=== PATIENT | male | born 1980 | race Two or more races ===

== ENCOUNTER 2023-07-11 14:58 | Outpatient (OUT) | payer OTHER, SELFPAY ==
[2023-07-11 16:25] LABS: Free T4 1.01 ng/dL (0.76-1.46)
[2023-07-11 16:26] LABS: Alanine Aminotransferase 72 U/L (16-63); Albumin Globulin Ratio 0.9; Albumin Level 3.6 g/dL (3.4-5.0); Alkaline Phosphatase 88 U/L (46-116); Anion Gap 12.4; Aspartate Amino Transferase 33 U/L (15-37); BUN Creatinine Ratio 14.9; Bilirubin Total 0.3 mg/dL (0.2-1.0); Calcium 8.7 mg/dL (8.5-10.1); Carbon Dioxide 27.4 mmol/L (21.0-32.0); Chloride 104 mmol/L (98-107); Chol HDL Ratio 5.4; Cholesterol 204 mg/dL (<=200); Estimated GFR (African America >60 (>=60); Estimated GFR (Non-African Ame >60 (>=60); Globulin 3.9 g/dL; Glucose 101 mg/dL (74-106); HDL Cholesterol 38 mg/dL (40-60); Potassium 3.8 mmol/L (3.5-5.1); Sodium 140 mmol/L (136-145); Thyroid Stimulating Hormone 2.383 uIU/mL (0.358-3.740); Total Protein 7.5 g/dL (6.4-8.2); Triglycerides 342 mg/dL (<=150); VLDL CHOLESTEROL 68.4 mg/dL
[2023-07-13 08:15] LABS: Testosterone 387 ng/dL (264-916)
== END 2023-07-11 14:59 | disposition home or self-care (01) ==
PROVIDERS: PCP Nurse Practitioner Family; Visit Provider Nurse Practitioner Family
DX: Z00.00 Encounter for general adult medical examination without abnormal findings (principal); R53.82 Chronic fatigue, unspecified
CPT/HCPCS: 36415; 80053; 80061; 84403; 84439; 84443

== ENCOUNTER 2024-05-31 09:37 | Emergency (ER) | payer OTHER, SELFPAY ==
[2024-05-31 09:40] VITALS: BP 138/97; PULSE 68; TEMP 36.6; O2SAT 98; BMI 31.2
--- NOTE | 2024-05-31 09:51 | ED_ITS ---
HPI HPI - Extremity Injury (Upper) General Chief Complaint: Extremity Injury, Upper Stated Complaint: UPPER EXTREMITY INJURY Time Seen by Provider: 05/31/24 09:48 History of Present Illness HPI narrative: 44-year-old male presents to the emergency department for a chief complaint of pain in his right wrist. Yesterday he was working on his car and hurt his wrist in a twisting motion. He points to the ulnar side of the wrist indicate area of pain and it hurts if he moves his wrist in that direction. Flexion extension do not seem to bother it much. Related Data Previous Rx's ?Medication ?Instructions ?Recorded etodolac 400 mg tablet 400 mg PO Q8H PRN pain #30 tabs 05/31/24 Allergies Allergy/AdvReac Type Severity Reaction Status Date / Time No Known Drug Allergies Allergy Verified 05/31/24 09:44 Opioid HPI Opioid Management Most Recent Pain and Opioid Data: Last Pain Scale 7 05/31/24 09:52 05/31/24 Last ED Pain Assessment 05/31/24 09:44 Review of Systems ROS Narrative A ten point review of systems is negative except as noted above. PFSH PFS Medical History (Updated 05/31/24 @ 10:35 by German Lara MD) No pertinent past medical history ?Z78.9 - Other specified health status (ICD-10) Surgical History (Updated 05/31/24 @ 09:55 by Jamie Velasquez) No pertinent past surgical history ?Z78.9 - Other specified health status (ICD-10) Social History Little interest or pleasure in doing things: not at all Feeling down, depressed, or hopeless: not at all Exam Narrative Exam Narrative: Nurses note and vital signs reviewed and patient is not hypoxic. General: The patient appears well and in no apparent distress. Patient is resting comfortably on cart. Skin: Warm, dry, no pallor noted. There is no rash noted. Head: Normocephalic, atraumatic Eye: Normal conjunctiva, no drainage Ears, Nose, Mouth, and Throat: oral mucosa is moist. Nares patent. Cardiovascular: Regular Rate and Rhythm Respiratory: Patient is in no distress, no accessory muscle use GI: Nontender Musculoskeletal: The right wrist is examined. There is no swelling or bruising or rash. Fingers have full range of motion. Ulnar deviation of the hand at the wrist causes discomfort. Neurological: A&O, normal speech Psychiatric: Cooperative Constitutional Vital Signs, click to edit/add: Last Vital Signs Temp 97.8 F 05/31/24 09:40 Pulse 68 05/31/24 09:40 Resp 16 05/31/24 09:40 BP 138/97 H 05/31/24 09:40 Pulse Ox 98 05/31/24 09:40 O2 Del Method Room Air 05/31/24 09:40 Course Vital Signs Vital signs: Vital Signs Temperature 97.8 F 05/31/24 09:40 Pulse Rate 68 05/31/24 09:40 Respiratory Rate 16 05/31/24 09:40 Blood Pressure 138/97 H 05/31/24 09:40 Pulse Oximetry 98 05/31/24 09:40 Oxygen Delivery Method Room Air 05/31/24 09:40 Temperature 97.8 F 05/31/24 09:40 Pulse Rate 68 05/31/24 09:40 Respiratory Rate 16 05/31/24 09:40 Blood Pressure 138/97 H 05/31/24 09:40 Pulse Oximetry 98 05/31/24 09:40 Oxygen Delivery Method Room Air 05/31/24 09:40 MDM - Extremity Injury (Upper) MDM Narrative Medical decision making narrative: X-ray is negative. Splint applied, application checked by me and found to be appropriate, he is neurovascularly intact. Orthopedic appointment made for a week from today at 10:30 AM, June 07. Treatment diagnosis and follow-up were discussed with the patient. Differential Diagnosis Differential diagnosis: Likely sprain and strain of wrist and fracture of wrist Imaging Data Wrist sprain: Radiologist's impression: ITS Impressions Wrist X-Ray 05/31/24 09:51 IMPRESSION: 1. Normal examination. Electronically authenticated by: VLADIMIR LAINEZ Date: 05/31/2024 10:26 Discharge Plan Discharge Chief Complaint: Extremity Injury, Upper Clinical Impression: Right wrist sprain Patient Disposition: Home, Self-Care Time of Disposition Decision: 10:34 Condition: Good Mode of Transportation: Private Vehicle Prescriptions / Home Meds: New etodolac 400 mg tablet 400 mg PO Q8H PRN (Reason: pain) Qty: 30 0RF Print Language: Greenlandic Instructions: Wrist Sprain (ED) Referrals: YOLANDA GREENBERG [Primary Care Provider] - 1 week Vladimir Bernardo MD [Physician] - 06/07/24 10:30 am
--- NOTE | 2024-05-31 09:51 | XR_ITS ---
[address] [address] Patient Name: MONISHA HAINES MRN: [id number] date: 1980 Sex: M Assigned Patient Location: ER Current Patient Location: ED.MAIN Accession/Order Number: [id number] Exam Date: 05/31/2024 09:52 Report Date: 05/31/2024 10:26 At the request of: KHADRA SWEENEY Procedure: XR wrist RT min 3V PROCEDURE: XR wrist RT min 3V HISTORY: Pain on the ulnar side COMPARISON: None. FINDINGS: BONES:No fracture, acute abnormality, or significant arthropathy. SOFT TISSUES:No visible soft tissue swelling. EFFUSION:None visible. OTHER: Negative. XR/XR wrist RT min 3V IMPRESSION: 1. Normal examination. Electronically authenticated by: MILTON LAINEZ Date: 05/31/2024 10:26
--- OUTSIDE RECORDS SUMMARY | 2024-05-31 10:02 | XMS_ITS | CCD ---
Author Organization [facility] Care Team Providers Care Licensed Surveyor Name Role Phone MISTI, DR KOEHLER Admitting Unavailable GRILLIS, DR KOEHLER Consulting Unavailable GRILLIS, DR KOEHLER Attending Unavailable REQUEST, DR COMBS LISTED Referring Unavaila ble GRILLIS, DR KOEHLER Admitting Unavailable GRILLIS, DR KOEHLER Consulting Unavailable GRILLIS, DR KOEHLER Attending Unavailable REQUEST, DR COMBS LISTED Primary Care Unavaila JANET Nunez Consulting Unavailable MARKER, DR CHOI Consulting Unavailable MARKER, DR CHOI Attending Unavailable MARKER, DR CHOI Admitting Unavailable LEVY ORELLANA Consulting Unavailable Sammi RN DOCUMENTATION-PLANTING MATERIAL CARRIER, Yolanda Vaughn Primary Care Provider YOLANDA CHAPA Attending Unavailable YOLANDA CHAPA Primary Care Unavailable Problems Active Problems Problem Classification Problem Date Documented Date Episodic/Chronic Anxiety disorders (3 sources) Generalized anxiety disorder; Translations: [Generalized anxiety disorder] Onset: 06-01-2018 06-01-2018 Chronic Biliary tract disease (5 sources) Calculus of gallbladder with chronic cholecystitis without obstruction; Translations: [Calculus of gallbladder without cholecystitis without obstruction] Onset: 04-18-2021 Episodic Coma; stupor; and brain damage (1 source) Somnolence; Translations: [Somnolence] Onset: 07-08-2023 Episodic Malaise and fatigue (1 source) Chronic fatigue, unspecified; Translations: [Chronic fatigue, unspecified] Onset: 07-08-2023 Chronic Nausea and vomiting (3 sources) Vomiting, unspecified; Translations: [VOMITING UNSPECIFIED] Onset: 04-17-2021 Episodic Residual codes; unclassified (3 sources) Obstructive sleep apnea syndrome; Translations: [Obstructive sleep apnea (adult) (pediatric)] Onset: 08-01-2023 08-01-2023 Chronic Substance-related disorders (1 source) Nicotine dependence, cigarettes, uncomplicated; Translations: [NICOTINE DEPEND CIGARETTES UNCOMP] Onset: 05-22-2021 Chronic Unclassified (1 source) CONTACT W/AND (SUSP) EXPOS COVID-19; Translations: [CONTACT W/AND (SUSP) EXPOS COVID-19] Onset: 05-19-2021 Unclassified (1 source) new patient Onset: 07-08-2023 Past or Other Problems Problem Classification Problem Date Documented Da te Episodic/Chronic Mood disorders (3 sources) Mood disorders Onset: 07-08-2023 07-08-2023 Unclassified (3 sources) Onset: 07-08-2023 07-08-2023 Results Test Name Value Interpretation Reference Range Facil ity CBC AUTO DIFFon 05-14-2021 BASO # 0.1 103/ul Normal 0.0-0.1 [facility] Comment on above: Performed By: #### C BC #### [facility] [address] [place] [address] Dr. Feliz Srivastava Basophils/100 WBC (Bld) 0.7 % Normal 0.2-2.0 [facility] Comment on above: Performed By: #### C BC #### [facility] [address] [address] [address] Feliz Srivastava EO # 0.1 103/ul Normal 0.0-0.7 [facility] Comment on above: Performed By: #### C BC #### [facility] [address] [place] [address] Dr. Feliz Srivastava Eosinophils/100 WBC (Bld) 1.4 % Normal 0.9-7.0 [facility] Comment on above: Performed By: #### C BC #### [facility] [address] [place] [address] Dr. Feliz Srivastava Erythrocyte distribution width (RBC) [Ratio] 12.7 % Normal 11.0-15.0 [facility] Comment on above: Performed By: #### C BC #### [facility] [address] [place] [address] Dr. Feliz Srivastava Hematocrit (Bld) [Volume fraction] 45.6 % Normal 42.0-54.0 [facility] Comment on above: Performed By: #### C BC #### [facility] [address] [place] [address] Dr. Feliz Srivastava Hemoglobin (Bld) [Mass/Vol] 15.6 g/dL Normal 14.0-18.0 [facility] Comment on above: Performed By: #### C BC #### [facility] [address] [place] [address] Dr. Feliz Srivastava IG # 0.02 10e3/ul Normal 0.00-0.03 [facility] Comment on above: Performed By: #### C BC #### [facility] [address] [place] [address] Dr. Feliz Srivastava IG % 0.3 % Normal 0.0-0.5 [facility] Comment on above: Performed By: #### C BC #### [facility] [address] [place] [address] Dr. Feliz rSivastava LYMPH # 2.3 103/ul Normal 1.2-3.8 [facility] Comment on above: Performed By: #### C BC #### [facility] [address] [place] [address] Dr. Feliz Srivastava Lymphocytes/100 WBC (Bld) 30.8 % Normal 20.5-60.0 [facility] Comment on above: Performed By: #### C BC #### [facility] [address] [place] [address] Dr. Feliz Srivastava MANUAL DIFF REQ NO Normal [facility] Comment on above: Performed By: #### C BC #### [facility] [address] [place] [address] Dr. Feliz Srivastava MCH (RBC) [Entitic mass] 32.2 pg Normal 25.9-34.0 [facility] Comment on above: Performed By: #### C BC #### [facility] [address] [place] [address] Dr. Feliz Srivastava MCHC (RBC) [Mass/Vol] 34.2 g/dL Normal 29.9-35.2 [facility] Comment on above: Performed By: #### C BC #### [facility] [address] [address] [address] Feliz Srivastava MCV (RBC) [Entitic vol] 94.0 fL Normal 80.0-94.0 [facility] Comment on above: Performed By: #### C BC #### [facility] [address] [address] [address] Feliz Srivastava MONO # 0.7 103/ul Normal 0.3-0.8 [facility] Comment on above: Performed By: #### C BC #### [facility] [address] [address] [address] Feliz Srivastava Monocytes/100 WBC (Bld) 9.1 % Normal 1.7-12.0 [facility] Comment on above: Performed By: #### C BC #### [facility] [address] [place] [address] Dr. Feliz Srivastava NEUT # 4.3 103/ul Normal 1.4-6.5 [facility] Comment on above: Performed By: #### C BC #### [facility] [address] [place] [address] Dr. Feliz Srivastava Neutrophils/100 WBC (Bld) 57.7 % Normal 43.0-75.0 [facility] Comment on above: Performed By: #### C BC #### [facility] [address] [place] [address] Dr. Feliz Srivastava Platelet mean volume (Bld) [Entitic vol] 9.8 fL Normal 9.5-13.5 [facility] Comment on above: Performed By: #### C BC #### [facility] [address] [place] [address] Dr. Feliz Srivastava PLT 284 103/ul Normal 150-450 [facility] Comment on above: Performed By: #### C BC #### [facility] [address] [place] [address] Dr. Feliz Srivastava RBC 4.85 106/ul Normal 4.70-6.10 [facility] Comment on above: Performed By: #### C BC #### [facility] [address] [place] [address] Dr. Feliz Srivastava WBC 7.4 103/ul Normal 4.0-11.0 [facility] Comment on above: Performed By: #### C BC #### [facility] [address] [place] [address] Dr. Feliz Srivastava Covid-19 PCR (CVDTB)on 04-30 SARS-CoV-2 (COVID-19) RNA POLO+probe Ql (Unsp spec) Not detected Normal NOT DETECTED [facility] Comment on above: Result Comment: This test is not yet approved or cleared by the [place] FDA. When there are no FDA-approved or cleared tests available, and other criteria are met, FDA can make tests available under an emergency access mechanism called an Emergency Use Authorization (EUA). The EUA for this test is supported by the [place] of Health and Human Service's (HHS's) declaration that circumstances exist to justify the emergency use of in vitro diagnostics for the detection and/or diagnosis of the virus that causes COVID-19. This EUA will remain in effect (meaning this test can be used) for the duration of the COVID-19 declaration justifying emergency of IVDs, unless it is terminated or revoked by FDA (after which the test may no longer be used). When diagnostic testing is negative, the possibility of a false negative should be considered in the context of a patient's recent exposures and the presence of clinical signs and symptoms consistent with SARS-CoV-2. Performed By: #### C VDTBH #### [facility] [address] [place] [address] Dr. Feliz Srivastava LIPASEon 05-14-2021 Lipase [Catalytic activity/Vol] 76.0 U/L Normal 23.0-300.0 [facility] Comment on above: Performed By: #### L IPA, CMP #### [facility] [address] [place] [address] Dr. Feliz Srivastava PROF 14(COMP METB)on 021 Albumin [Mass/Vol] 3.6 g/dL Normal 3.5-5.0 [facility] Comment on above: Performed By: #### L IPA, CMP #### [facility] [address] [place] [address] Dr. Feliz Srivastava Albumin/Globulin [Mass ratio] 0.9 {ratio} Normal [facility] Comment on above: Performed By: #### L IPA, CMP #### [facility] [address] [place] [address] Dr. Feliz Srivastava ALP [Catalytic activity/Vol] 90 U/L Normal 38-126 [facility] Comment on above: Performed By: #### L IPA, CMP #### [facility] [address] [address] [address] Feliz Srivastava ALT [Catalytic activity/Vol] 80 U/L Critically high 21-72 [facility] Comment on above: Performed By: #### L IPA, CMP #### [facility] [address] [place] [address] Dr. Feliz Srivastava Anion gap [Moles/Vol] 8.9 mmol/L Normal [facility] Comment on above: Performed By: #### L IPA, CMP #### [facility] [address] [place] [address] Dr. Feliz Srivastava AST [Catalytic activity/Vol] 30 U/L Normal 17-59 [facility] Comment on above: Performed By: #### L IPA, CMP #### [facility] [address] [place] [address] Dr. Feliz Srivastava Bilirubin [Mass/Vol] 0.3 mg/dL Normal 0.2-1.3 [facility] Comment on above: Performed By: #### L IPA, CMP #### [facility] [address] [place] [address] Dr. Feliz Srivastava Calcium [Mass/Vol] 9.0 mg/dL Normal 8.4-10.2 [facility] Comment on above: Performed By: #### L IPA, CMP #### [facility] [address] [place] [address] Dr. Feliz Srivastava Chloride [Moles/Vol] 101 mmol/L Normal 98-107 [facility] Comment on above: Performed By: #### L IPA, CMP #### [facility] [address] [place] [address] Dr. Feliz Srivastava CO2 [Moles/Vol] 29.0 mmol/L Normal 22.0-30.0 [facility] Comment on above: Performed By: #### L IPA, CMP #### [facility] [address] [place] [address] Dr. Feliz Srivastava Creatinine [Mass/Vol] 0.92 mg/dL Normal 0.66-1.25 [facility] Comment on above: Performed By: #### L IPA, CMP #### [facility] [address] [place] [address] Dr. Feliz Srivastava EGFR-AF ICELANDIC >60 Normal >=60 [facility] Comment on above: Performed By: #### L IPA, CMP #### [facility] [address] [place] [address] Dr. Feliz Srivastava EGFR-NON AF ICELANDIC >60 Normal >=60 [facility] Comment on above: Performed By: #### L IPA, CMP #### [facility] [address] [place] [address] Dr. Feliz Srivastava Globulin (S) [Mass/Vol] 3.8 g/dL Normal [facility] Comment on above: Performed By: #### L IPA, CMP #### [facility] [address] [place] [address] Dr. Feliz Srivastava Glucose [Mass/Vol] 104 mg/dL Normal 74-106 [facility] Comment on above: Performed By: #### L IPA, CMP #### [facility] [address] [place] [address] Dr. Feliz Srivastava Potassium [Moles/Vol] 3.9 mmol/L Normal 3.4-5.0 [facility] Comment on above: Performed By: #### L IPA, CMP #### [facility] [address] [place] [address] Dr. Feliz Srivastava Protein [Mass/Vol] 7.4 g/dL Normal 6.1-8.2 [facility] Comment on above: Performed By: #### L IPA, CMP #### [facility] [address] [place] [address] Dr. Feliz Srivastava Sodium [Moles/Vol] 135 mmol/L Critically low 137-145 [facility] Comment on above: Performed By: #### L IPA, CMP #### [facility] [address] [place] [address] Dr. Feliz Srivastava Urea nitrogen [Mass/Vol] 19.0 mg/dL Normal 9.0-20.0 [facility] Comment on above: Performed By: #### L IPA, CMP #### [facility] [address] [place] [address] Dr. Feliz Srivastava Urea nitrogen/Creatinine [Mass ratio] 20.7 mg/mg Normal [facility] Comment on above: Performed By: #### L IPA, CMP #### [facility] [address] [place] [address] Dr. Feliz Srivastava CBC AUTO DIFFon 04-17-2021 BASO # 0.1 103/ul Normal 0.0-0.1 [facility] Comment on above: Performed By: #### C BC #### [facility] [address] [place] [address] Dr. Feliz Srivastava Basophils/100 WBC (Bld) 0.7 % Normal 0.2-2.0 [facility] Comment on above: Performed By: #### C BC #### [facility] [address] [place] [address] Dr. Feliz Srivastava EO # 0.1 103/ul Normal 0.0-0.7 [facility] Comment on above: Performed By: #### C BC #### [facility] [address] [place] [address] Dr. Feliz Srivastava Eosinophils/100 WBC (Bld) 0.6 % Critically low 0.9-7.0 [facility] Comment on above: Performed By: #### C BC #### [facility] [address] [place] [address] Dr. Feliz Srivastava Erythrocyte distribution width (RBC) [Ratio] 12.5 % Normal 11.0-15.0 [facility] Comment on above: Performed By: #### C BC #### [facility] [address] [place] [address] Dr. Feliz Srivastava Hematocrit (Bld) [Volume fraction] 45.7 % Normal 42.0-54.0 [facility] Comment on above: Performed By: #### C BC #### [facility] [address] [place] [address] Dr. Feliz Srivastava Hemoglobin (Bld) [Mass/Vol] 15.6 g/dL Normal 14.0-18.0 [facility] Comment on above: Performed By: #### C BC #### [facility] [address] [place] [address] Dr. Feliz Srivastava IG # 0.03 10e3/ul Normal 0.00-0.03 [facility] Comment on above: Performed By: #### C BC #### [facility] [address] [place] [address] Dr. Feliz Srivastava IG % 0.3 % Normal 0.0-0.5 [facility] Comment on above: Performed By: #### C BC #### [facility] [address] [place] [address] Dr. Feliz Srivastava LYMPH # 2.2 103/ul Normal 1.2-3.8 [facility] Comment on above: Performed By: #### C BC #### [facility] [address] [place] [address] Dr. Feliz Srivastava Lymphocytes/100 WBC (Bld) 25.2 % Normal 20.5-60.0 [facility] Comment on above: Performed By: #### C BC #### [facility] [address] [place] [address] Dr. Feliz Srivastava MANUAL DIFF REQ NO Normal [facility] Comment on above: Performed By: #### C BC #### [facility] [address] [place] [address] Dr. Feliz Srivastava MCH (RBC) [Entitic mass] 31.6 pg Normal 25.9-34.0 [facility] Comment on above: Performed By: #### C BC #### [facility] [address] [place] [address] Dr. Feliz Srivastava MCHC (RBC) [Mass/Vol] 34.1 g/dL Normal 29.9-35.2 [facility] Comment on above: Performed By: #### C BC #### [facility] [address] [place] [address] Dr. Feliz Srivastava MCV (RBC) [Entitic vol] 92.5 fL Normal 80.0-94.0 [facility] Comment on above: Performed By: #### C BC #### [facility] [address] [place] [address] Dr. Feliz Srivastava MONO # 0.7 103/ul Normal 0.3-0.8 [facility] Comment on above: Performed By: #### C BC #### [facility] [address] [place] [address] Dr. Feliz Srivastava Monocytes/100 WBC (Bld) 7.6 % Normal 1.7-12.0 [facility] Comment on above: Performed By: #### C BC #### [facility] [address] [place] [address] Dr. Feliz Srivastava NEUT # 5.8 103/ul Normal 1.4-6.5 [facility] Comment on above: Performed By: #### C BC #### [facility] [address] [place] [address] Dr. Feliz Srivastava Neutrophils/100 WBC (Bld) 65.6 % Normal 43.0-75.0 [facility] Comment on above: Performed By: #### C BC #### [facility] [address] [place] [address] Dr. Feliz Srivastava Platelet mean volume (Bld) [Entitic vol] 10.0 fL Normal 9.5-13.5 [facility] Comment on above: Performed By: #### C BC #### [facility] [address] [place] [address] Dr. Feliz Srivastava PLT 287 103/ul Normal 150-450 [facility] Comment on above: Performed By: #### C BC #### [facility] [address] [place] [address] Dr. Feliz Srivastava RBC 4.94 106/ul Normal 4.70-6.10 [facility] Comment on above: Performed By: #### C BC #### [facility] [address] [place], [place] [address] Dr. Feliz Srivastava WBC 8.9 103/ul Normal 4.0-11.0 [facility] Comment on above: Performed By: #### C BC #### [facility] [address] [place], [place] [address] ABD/PELV W CONon 04-17-[address] ABD/PELV W CON EXAM: CT abdomen and pelvis with contrast dated 04/17/2021 12:09 AM EDT HISTORY: 40 years old Male with acute epigastric pain with nausea and vomiting. COMPARISON STUDY: None available at time of dictation. TECHNIQUE: Multidetector spiral CT of the abdomen and pelvis was performed from lung bases to pubic symphysis. 100 mL Omnipaque 300 intravenous contrast was administered during this examination. Portal venous imaging was obtained. Axial, coronal and sagittal multiplanar reformats were performed by the technologist. Dose reduction techniques were achieved by using automated exposure control and/or adjustment of mA and/or kV according to patient size and/or use of iterative reconstruction technique. FINDINGS: Lung Bases: No acute or significant lung base finding. Normal heart size. No pleural or pericardial effusion. Liver: The liver is normal in size. Subcentimeter cyst or hemangioma on image 20 of series 3. Mild hepatic steatosis is suggested and there is a large gallstone noted within the neck of the gallbladder measuring up to approximately 21 x 19 mm. Mild adjacent pericholecystic edema is suggested. Spleen: Unremarkable. Pancreas: The pancreas is normal in appearance without focal lesions or abnormal enhancement. Adrenal Glands: Unremarkable. Kidneys: Kidneys demonstrate normal symmetric enhancement without focal lesions, calculi or hydronephrosis. Bladder: The bladder wall is mildly thickened are underdistended, and there is slight low attenuation within the wall of the bladder which can represent a chronic process or submucosal lipid deposition, however gas is felt to be less likely. Correlation for infection is recommended. Delayed phase imaging demonstrates contrast opacifying the bladder and distal ureters. Evaluation for filling defects cannot be adequately performed on this exam. Bowel: The stomach is slightly thickened at its distal aspect on images 39 through 44 of series 3 which may represent peristalsis or under distention. Normal appendix without findings of acute appendicitis. Mild underdistention or slight thickening of the transverse and descending colon is noted. Within the limitations of lack of oral contrast, there is no finding to suggest obstruction. Slight submucosal low-attenuation of the colon is noted, and correlation for history of inflammatory bowel disease is recommended. Slight pericolonic hyperemia along the descending colon on images 31 through 42 of series 5. No focal surrounding inflammatory changes or drainable collection. Abdominal Wall and Mesentery: Unremarkable. Vasculature: The visualized abdominal aorta is normal in size and caliber. Abdominal and pelvic vessels demonstrate normal enhancement. Pelvic Organs: Unremarkable. There is a very small fat-containing ventral umbilical hernia defect. Musculoskeletal: No aggressive focal bony lesions, acute fractures or dislocation. IMPRESSION: Cholelithiasis in the neck of the gallbladder with mild thickening of the gallbladder wall and trace adjacent edema. Clinical and laboratory correlation for cholecystitis is suggested. If indicated consider targeted ultrasound. Mild hepatic steatosis. Subcentimeter cyst or possible small hemangioma. Mild thickening or underdistention of the bladder for which laboratory correlation for infection is suggested. Underdistention versus mild thickening of the colon as above. Mild infectious or inflammatory colitis is a consideration. Correlation for history of inflammatory bowel disease is also suggested. Nonacute findings as noted. Electronically authenticated by: LEVY ORELLANA Date: 2021-04-17 01:56 Normal [facility] LACTATE/LACTIC ACIDon 2020 Lactate [Moles/Vol] 1.8 mmol/L Normal 0.7-2.0 [facility] Comment on above: Performed By: #### L ACT #### [facility] [address] [address] [address] Feliz Srivastava LIPASEon 04-17-2021 Lipase [Catalytic activity/Vol] 61.0 U/L Normal 23.0-300.0 [facility] Comment on above: Performed By: #### B MP, LIPA, LIVER #### [facility] [address] [address] [address] Feliz Srivastava LIVER PROFILEon 04-17-2021 Albumin [Mass/Vol] 3.7 g/dL Normal 3.5-5.0 [facility] Comment on above: Performed By: #### L IPA, CMP #### [facility] [address] [address] [address] Feliz Srivastava Albumin/Globulin [Mass ratio] 1.0 {ratio} Normal [facility] Comment on above: Performed By: #### L IPA, CMP #### [facility] [address] [address] [address] Feliz Srivastava ALP [Catalytic activity/Vol] 81 U/L Normal 38-126 [facility] Comment on above: Performed By: #### L IPA, CMP #### [facility] [address] [address] [address] Feliz Srivastava ALT [Catalytic activity/Vol] 59 U/L Normal 21-72 [facility] Comment on above: Performed By: #### L IPA, CMP #### [facility] [address] [address] [address] Feliz Srivastava AST [Catalytic activity/Vol] 29 U/L Normal 17-59 [facility] Comment on above: Performed By: #### L IPA, CMP #### [facility] [address] [address] [address] Feliz Srivastava BILI, CONJUGATED 0.1 mg/dL Normal 0.0-0.3 [facility] Comment on above: Performed By: #### L IPA, CMP #### [facility] [address] [address] [address] Feliz Srivastava Bilirubin [Mass/Vol] 0.5 mg/dL Normal 0.2-1.3 [facility] Comment on above: Performed By: #### L IPA, CMP #### [facility] [address] [address] [address] Feliz Srivastava Globulin (S) [Mass/Vol] 3.8 g/dL Normal [facility] Comment on above: Performed By: #### L IPA, CMP #### [facility] [address] [address] [address] Feliz Srivastava Protein [Mass/Vol] 7.5 g/dL Normal 6.1-8.2 [facility] Comment on above: Performed By: #### L IPA, CMP #### [facility] [address] [address] [address] Feliz Srivastava PROF CHEM 8 (BAS METB)on Anion gap [Moles/Vol] 10.5 mmol/L Normal [facility] Comment on above: Performed By: #### B MP, LIPA, LIVER #### [facility] [address] [place] [address] Dr. Feliz Srivastava Calcium [Mass/Vol] 9.0 mg/dL Normal 8.4-10.2 [facility] Comment on above: Performed By: #### B MP, LIPA, LIVER #### [facility] [address] [address] [address] Feliz Srivastava Chloride [Moles/Vol] 104 mmol/L Normal 98-107 [facility] Comment on above: Performed By: #### B MP, LIPA, LIVER #### [facility] [address] [place] [address] Dr. Feliz Srivastava CO2 [Moles/Vol] 28.1 mmol/L Normal 22.0-30.0 [facility] Comment on above: Performed By: #### B MP, LIPA, LIVER #### [facility] [address] [place] [address] Dr. Feliz Srivastava Creatinine [Mass/Vol] 1.26 mg/dL Critically high 0.66-1.25 [facility] Comment on above: Performed By: #### B MP, LIPA, LIVER #### [facility] [address] [place] [address] Dr. Feliz Srivastava EGFR-AF ICELANDIC >60 Normal >=60 [facility] Comment on above: Performed By: #### B MP, LIPA, LIVER #### [facility] [address] [place] [address] Dr. Feliz Srivastava EGFR-NON AF ICELANDIC >60 Normal >=60 [facility] Comment on above: Performed By: #### B MP, LIPA, LIVER #### [facility] [address] [place] [address] Dr. Feliz Srivastava Glucose [Mass/Vol] 126 mg/dL Critically high 74-106 [facility] Comment on above: Performed By: #### B MP, LIPA, LIVER #### [facility] [address] [address] [address] Feliz Srivastava Potassium [Moles/Vol] 3.6 mmol/L Normal 3.4-5.0 [facility] Comment on above: Performed By: #### B MP, LIPA, LIVER #### [facility] [address] [place] [address] Dr. Feliz Srivastava Sodium [Moles/Vol] 139 mmol/L Normal 137-145 [facility] Comment on above: Performed By: #### B MP, LIPA, LIVER #### [facility] [address] [place] [address] Dr. Feliz Srivastava Urea nitrogen [Mass/Vol] 21.0 mg/dL Critically high 9.0-20.0 [facility] Comment on above: Performed By: #### B MP, LIPA, LIVER #### [facility] [address] [place] [address] Dr. Feliz Srivastava Urea nitrogen/Creatinine [Mass ratio] 16.7 mg/mg Normal [facility] Comment on above: Performed By: #### B MP, LIPA, LIVER #### [facility] [address] [place] [address] Dr. Feliz Srivastava US SINGLE QUAD RT UPPERon US SINGLE QUAD RT UPPER ABDOMINAL ULTRASOUND CLINICAL HISTORY: GENERALIZED ABDOMINAL PAIN. COMPARISON: None. FINDINGS: Sonographic evaluation of the abdomen was performed by the technologist. Images are submitted for review. Pancreas: The most proximal aspect of the pancreas is unremarkable. The distal aspect is obscured secondary to overlying bowel gas fat and technical factors. Liver: The liver demonstrates overall increased echotexture suggestive of hepatic steatosis. The portal vein is patent with normal direction of flow. An area of hypoechoic echotexture on image 36 is noted in the gallbladder fossa region with no increased vascularity. This measures 1.7 cm and may represent a focal area of fat sparing. Gallbladder and Biliary Tree: Mild gallbladder wall thickening is noted with sludge and shadowing cholelithiasis in the neck of the gallbladder measuring up to 2.3 cm. No significant pericholecystic fluid is seen. The common bile duct measures up to 5 mm distally. No significant biliary ductal dilatation is seen. The common duct proximally is slightly prominent. There is a positive sonographic Lubin's sign reported. Slight areas of increased echotexture along the wall of the gallbladder may represent cholesterol polyps or adenomyomatosis with slight ring down artifact on image 38. Subtle calcifications on image 37 are also a consideration. Right kidney: The right kidney is poorly visualized on this exam due to overlying bowel gas and technical factors however appears grossly unremarkable measuring up to 11.7 x 7.5 x 7.8 cm with no hydronephrosis or definite shadowing stones. IMPRESSION: Gallbladder wall thickening with cholelithiasis and sludge in the gallbladder lumen. Positive sonographic Lubin's sign with slight prominence of the common bile duct however the distal common duct appears to demonstrate a normal caliber with no definite sonographic findings to suggest choledocholithiasis. Nonspecific echogenic foci with ringdown artifact in the wall of the gallbladder as above. Clinical and laboratory correlation for acute cholecystitis is suggested. Heterogeneously echogenic liver, which is suggestive of hepatic steatosis with probable fat sparing in the gallbladder fossa, however other underlying hepatocellular pathology is not entirely excluded. Clinical and laboratory correlation is suggested. No hydronephrosis of the right kidney. No significant ascites or other focal abnormality. Electronically authenticated by: LEVY ORELLANA Date: 2021-04-17 04:26 Normal [facility] Encounters Encounter Date Encounter Type Care Provider Facility Start: 08-21-2023 Telephone encounter Nicolle Boyd MA [facility] Pulmonary/Sleep Medicine Start: 08-01-2023 Orders Only Yolanda Chapa RN DOCUMENTATION-PLANTING MATERIAL CARRIER Work Phone: [facility] Internal Medicine - Family Medicine Comment on above: ZENON (obstructive sle ep apnea) (Primary Dx) Start: 07-09-2023 Telephone encounter Yolanda Chapa RN DOCUMENTATION-PLANTING MATERIAL CARRIER Work Phone: [facility] - Sleep Disorders Comment on above: Sleep Lab ([facility]) Start: 07-08-2023 End: 07-08-2023 ambulatory YOLANDA VAUGHN [facility] Start: 07-08-2023 Encounter for genera l adult medical examination without abnormal findings YOLANDA VAUGHN [facility] Start: 05-19-2021 Encounter for preprocedural laboratory examination DR ZAKIA CHAPPELL [facility] Start: 05-16-2021 End: 05-16-[address] ZAKIA CHAPPELL Facility:[facility] Start: 05-14-2021 End: 05-15-[address] ZAKIA CHAPPELL Facility:[facility] Start: 05-14-2021 End: 05-15-2021 Encounter for preprocedural laboratory examination DR ZAKIA CHAPPELL Facility:[facility] Start: 04-17-2021 End: 04-17-[address] STEPH MATTHEWS Facility:[facility] Procedures Date Procedure Procedure Detail Performing Clinician Start: 07-08-2023 Adult depression screening assessment Yolanda Chapa RN DOCUMENTATION-PLANTING MATERIAL CARRIER Work Phone: Plan of Treatment Date Care Activity Detail Author Start: 07-08-2024 Adult BMI Follow Up Plan Adult BMI Follow Up Plan [facility] Start: 07-08-2024 Adult BMI Screening Adult BMI Screen ing [facility] Start: 07-08-2024 Depression Screening Depression Scre ening [facility] Start: 07-08-2024 Tobacco Screening Tobacco Screening [facility] Start: 1999 DTaP,Tdap and Td Vaccines (1 - Tdap) DTaP,Tdap and Td Vaccines (1 - Tdap) [facility] Payers Date Payer Category Payer Private Health Insurance [facility] [id number] 2013-Present [phone] [address] [address] [place] [address] [id number] 1980 Unknown [id number] 1980 Unknown [id number] 1980 Unknown [id number] 1980 Unknown [id number] 1959 Unknown [id number] Social History Date Type Detail Facility Start: 07-08-2023 Tobacco smoking stat us NHIS Ex-smoker [facility] History of tobacco use Current smoker [facility] History of tobacco use Cigarette Smoker P [facility] Start: 08-10-2020 End: 07-08-2023 Cigarettes smoked current (pack per day) - Reported 0.1 [facility] Start: 07-08-2023 Tobacco use and exposure Smokeless tobacco non-user [facility] Start: 07-08-2023 Alcohol intake Current drinke r of alcohol (finding) [facility] Start: 08-10-2020 End: 07-08-2023 Tobacco use panel [facility] Adolescent depressio n screening assessment 0 [facility] Start: 07-08-2023 Alcohol Comment ocassionally [facility] Start: 1980 Sex Assigned At Male P [facility] Start: 06-03-2018 Gender identity Identifies as male gender (finding) [facility] Start: 06-03-2018 Sexual orientation Heterosexual (fin ding) [facility] Note 08-21-2023 Telephone Encounter - Nicolle Irizarry CMA - 08/21/2023 11:08 AM EST Note Date & Type Note Facility 08-21-2023 Miscellaneous Notes Formattin g of this note might be different from the original. CHEMICAL SUPERVISOR CONTACTED PATIENT TO SCHEDULE A CONSULT FOR SLEEP IN [facility]. PATIENT STATED THAT HE IS FOLLOWING UP WITH A PROVIDER IN [place], [place] documented in this encounter [facility] Telephone encounter Note 08-21-2023 Telephone Encounter - Nicolle Irizarry CMA - 08/21/2023 11:08 AM EST Note Date & Type Note Facility 08-21-2023 Telephone encount er Note CHEMICAL SUPERVISOR CONTACTED PATIENT TO SCHEDULE A CONSULT FOR SLEEP IN [place]. PATIENT STATED THAT HE IS FOLLOWING UP WITH A PROVIDER IN [place], [place] [facility] Note 07-09-2023 Telephone Encounter - Gail Lange - 07/09/2023 12:03 PM EST Note Date & Type Note Facility 07-09-2023 Miscellaneous Notes Formattin g of this note might be different from the original. 07/08 received HST order 07/09 Called PT LM to schedule sleep study. HST order and 07/08 Sammi notes in epic documented in this encounter [facility] Telephone encounter Note 07-09-2023 Telephone Encounter - Gail Lange - 07/09/2023 12:03 PM EST Note Date & Type Note Facility 07-09-2023 Telephone encount er Note 07/08 received HST order 07/09 Called PT LM to schedule sleep study. HST order and 07/08 Sammi notes in epic [facility] Evaluation note Note Date & Type Note Facility Evaluation note Diagnosis ZENON (obstructive sleep apnea)- Primary Obstructive sleep apnea (adult) (pediatric) documented in this encounter [facility] Instructions Note Date & Type Note Facility Instructions Not on filedocumented in this en counter [facility] Instructions Note Date & Type Note Facility Instructions Not on filedocumented in this en counter [facility] Reason for referral (narrative) Consultation (Routine) - Pending Review Note Date & Type Note Facility Reason for referral (narrati ve) Specialty Diagnoses / Procedures Referred By Mendez ramirez Referred To Contact Pulmonary Medicine Diagnoses ZENON (obstructive sleep apnea) Yolanda Chapa APRN-FNP [address] [place] [address] Yogesh Macias, [address] [place] [address] Referral ID Status Reason Start Date Expiration Date Visits Requested Visits Authorized [id number] Pending Review Specialty Services Required 08/01/2023 07/31/2024 1 1 [facility] Summary Purpose Family History No Family History Records FoundNo Family History Records Found Advance Directives No Advanced Directives Records FoundNo Advanced Directives Records Found Additional Source Comments (unrecognized sect ion and content) No Status Records FoundNo Status Records Found INFORMATION SOURCE (unrecogn ized section and content) DATE CREATED AUTHOR 05/23/2021 [facility] DATE CREATED AUTHOR AUTHOR'S ORGANIZ ATION 07/13/2023 [facility] Reason for Visit (unrecogniz ed section and content) Reason Onset Date Comments Sleep Lab 07/09/2023 [facility] Care Teams (unrecognized sec tion and content) Licensed Surveyor Relationship Specialty Start Date End Date [facility] [address] [place] [address] PCP - General Internal Medicine 07/08/23 Licensed Surveyor Relationship Specialty Start Date End Date [facility] [address] [place] [place] [address] PCP - General Internal Medicine 07/08/23 Licensed Surveyor Relationship Specialty Start Date End Date [facility] [address] [place] [place] [address] PCP - General Internal Medicine 07/08/23 FOR RECORDS PERTAINING TO PATIENTS WHO ARE OR HAVE BEEN ENROLLED IN A CHEMICAL DEPENDENCY/SUBSTANCEABUSE PROGRAM, SOME INFORMATION MAY BE OMITTED. This clinical summary was aggregated from multiple sources. Caution should be exercised in using it in the provision of clinical care. This summary normalizes information from multiple sources, and as a consequence, information in this document may materially change the coding, format and clinical context of patient data. In addition, data may be omitted in some cases. CLINICAL DECISIONS SHOULD BE BASED ON THE PRIMARY CLINICAL RECORDS. [facility]. provides no warranty or guarantee of the accuracy or completeness of information in this document.
== END 2024-05-31 10:49 | disposition home or self-care (01) ==
PROVIDERS: Emergency Provider Emergency Medicine; PCP Nurse Practitioner Family
DX: S63.501A Unspecified sprain of right wrist, initial encounter (principal); X50.1XXA Overexertion from prolonged static or awkward postures, initial encounter
CPT/HCPCS: 73110; 99283